=== PATIENT | male | born 1945 | race Caucasian/White ===

== ENCOUNTER 2023-10-21 18:05 | Emergency (ER) | payer OTHER, MEDICARE, SELFPAY ==
[2023-10-21 18:06] VITALS: BP 146/82; PULSE 79; RESP 16; TEMP 37.2; O2SAT 98; BMI 22.3
--- NOTE | 2023-10-21 22:14 | ED.HEATRA ---
HPI - Head Injury General Chief complaint: Head Injury Stated complaint: hit on head with a hammer Time Seen by Provider: 10/21/23 22:14 Source: patient Mode of arrival: Family Vehicle History of Present Illness HPI Narrative: 77-year-old gentleman with no significant medical history [place] was doing some work around his house on a ladder and had a 4 lb hammer fall off an upper shelf landing on the right side of his head. It was an approximate 1-1/2 foot drop for the hammer. He has a minor contusion to his head did not lose consciousness, some minor neck pain. Was able to safely climbed down from the ladder. He checked with the consulting nurse who recommended coming to the emergency department for further evaluation. He has not reporting significant headache, nausea, vomiting, vision changes. He did note that he was feeling a bit unsteady gait ceja but that did improve after having a small meal. No chest pain palpitations fevers or chills. Related Data Allergies Allergy/AdvReac Type Severity Reaction Status Date / Time INGREDIENT: NKA - NO KNOWN Allergy Unknown Uncoded 08/26/17 11:46 ALLERGIES Review of Systems Review of Systems Narrative: Pertinent positive and negative findings as per HPI Exam Initial Vital Signs Initial Vital Signs: Vital Signs Temperature 98.9 F 10/21/23 18:06 Pulse Rate 79 10/21/23 18:06 Respiratory Rate 16 10/21/23 18:06 Blood Pressure 146/82 H 10/21/23 18:06 Pulse Oximetry 98 10/21/23 18:06 Oxygen Delivery Method Room Air 10/21/23 18:06 General: Healthy appearing, in no acute distress. Able to give a complete and coherent history. Well-nourished well-developed HEENT: Moist mucous membranes, normal sclera with reactive pupils, minor hematoma to the right parietal area, no clinical evidence of skull fracture Neck: No midline cervical spine tenderness Respiratory: Lungs are clear to auscultation, no wheezing no rales no rhonchi. Full and symmetrical air movement Cardiac: Regular rate and rhythm no murmurs no bruits Abdomen: Soft, nontender, good bowel tones, no flank pain Skin: Warm and dry, no rashes Neurologic: Grossly neurologically intact with no obvious asymmetries or abnormalities Extremities: No trauma, well perfused Psych: Cooperative, appropriate insight and affect Course Orders Ordered: ED Orders 10/21/23 22:23 CT head/brain wo con Stat Vital Signs Vital signs: Vital Signs - 8 hr 10/21/23 18:06 Temperature 98.9 F Pulse Rate 79 Respiratory Rate 16 Blood Pressure 146/82 H Pulse Oximetry 98 Oxygen Delivery Method Room Air MDM - Head Injury MDM Narrative Medical decision making narrative: CC: Head injury Complicating co-morbidities: No significant medical history, no current medications, not anticoagulated. Data collected from: patient Social determinants of health that may influence the patients condition: 77-year-old gentleman still climbing up ladders Differential considered: Minor contusion, skull fracture, concussion, intracranial hemorrhage Exam documented above, pertinent findings include: Patient has a minor contusion. He is feeling significantly improved. Neurologic exam is benign Imaging studies independently reviewed: CT scan of the head is unremarkable Discussion: 77-year-old gentleman with no significant medical history had a hammer fall in the right side of his head. With shared decision-making we clear reviewed pros and cons of head CT. Because of his age, potential for harm [place] we opted to go ahead with a CT scan of his head. It was entirely unremarkable. Discussed anticipated resolution of the contusion that he has had. We also had a nice discussion about the importance of not climbing up ladders when you are old enough to higher somebody to do it for you. Reassurance is given, questions are answered and he is safe for discharge Discharge Plan Departure Patient Disposition: Home Clinical Impression: Hematoma of right parietal scalp Qualifiers: Encounter type: initial encounter Qualified Code(s): S00.03XA - Contusion of scalp, initial encounter Instructions: DI for Contusion Activity Restrictions/Additional Instructions: Thank you for coming in today With shared decision-making, we did decide to go ahead and do a CT scan this evening. The CT scan does not show any intracranial hemorrhage, skull fractures or other significant abnormalities. It will likely take a little over a week for the bruise on the side of your head to completely resolve. If you notice that you are having low-grade headaches or neck pain Tylenol would be appropriate. If you find that you are getting worse or develop any new symptoms, please feel free to return to the emergency department for further evaluation. Referrals: Miscellaneous,[facility] [Primary Care Provider] - Stand Alone Forms: Patient Portal/API
--- NOTE | 2023-10-21 22:23 | DI.CT.S_ITS ---
PROCEDURE: CT HEAD/BRAIN WO CON INDICATIONS: head trauma TECHNIQUE: Noncontrast 4.5 mm thick angled axial sections acquired from the foramen magnum to the vertex, with coronal and sagittal reformats. For radiation dose reduction, the following was used: automated exposure control, adjustment of mA and/or kV according to patient size. COMPARISON: None. FINDINGS: Image quality: Diagnostic. CSF spaces: Basal cisterns are patent. No extra-axial fluid collections. The ventricles are symmetric in size and shape. Brain: No acute intracranial hemorrhage or mass effect. There is cerebral volume loss for age, with resultant ventricular and sulcal prominence. There are periventricular and deep white matter chronic small vessel ischemic changes. There is intracranial internal carotid artery atherosclerosis. Skull and face: Calvarium and visualized facial bones appear intact, without suspicious lesions. Sinuses: Visualized sinuses and mastoids are clear. IMPRESSION: No acute intracranial pathology. Approved by: Jefferson Walters M.D. on 10/21/2023 at 23:28
[2023-10-21 23:55] VITALS: BP 140/80; PULSE 82; RESP 18; O2SAT 100
== END 2023-10-21 23:56 | disposition home or self-care (01) ==
PROVIDERS: Emergency Provider Emergency Medicine
DX: S00.03XA Contusion of scalp, initial encounter (principal); W22.8XXA Striking against or struck by other objects, initial encounter
CPT/HCPCS: 70450; 99281; 99284